=== PATIENT | female | born 1995 | race Caucasian/White ===

== ENCOUNTER 2017-01-02 12:25 | Emergency (ER) | payer MEDICAID ==
[2012-07-05 08:19] VITALS: BMI 22.1
== END 2017-01-02 13:22 | disposition home or self-care (01) ==
LOC: D.ER 12:25
DX: S61.411A Laceration without foreign body of right hand, initial encounter (principal); W25.XXXA Contact with sharp glass, initial encounter; Y93.G1 Activity, food preparation and clean up; Y92.010 Kitchen of single-family (private) house as the place of occurrence of the external cause

== ENCOUNTER 2017-01-09 15:08 | Emergency (ER) | payer MEDICAID | END 2017-01-09 17:46 | disposition home or self-care (01) | LOC: D.ER 15:08 | DX: N39.0 Urinary tract infection, site not specified (principal); F17.200 Nicotine dependence, unspecified, uncomplicated ==

== ENCOUNTER 2017-04-18 16:13 | Emergency (ER) | payer MEDICAID ==
[2012-07-05 08:19] VITALS: BMI 22.1
[2017-04-18 17:49] LABS: BASOPHILS 0.1 % (0-2); EOSINOPHILS 0.7 % (0-7); IMMATURE GRANULOCYTES 0.5 % (0-5); LYMPHOCYTES 18.2 % (15-50); MCH 31.8 pg (26.0-34.0); MCHC 33.3 g/dL (31.0-37.0); MCV 95.4 fL (80.0-100.0); MEAN PLATELET VOLUME 9.4 fL (7.4-10.4); MONOCYTES 7.6 % (2-11); NEUTROPHILS 72.9 % (40-80); PLATELET COUNT 330 10x3/uL (130-400); RBC 3.46 10x6/uL (4.00-5.40); RDW 14.4 % (11.5-14.5); WBC 15.9 10x3/uL (4.8-10.8)
[2017-04-18 17:57] LABS: APPEARANCE CLEAR (CLEAR); BILIRUBIN NEGATIVE (NEGATIVE); COLOR YELLOW (YELLOW); GLUCOSE NEGATIVE (NEGATIVE); KETONE NEGATIVE (NEGATIVE); NITRITE NEGATIVE (NEGATIVE); PROTEIN NEGATIVE (NEGATIVE); UROBILINOGEN NORMAL (NORMAL)
[2017-04-18 18:04] LABS: ALBUMIN 3.2 g/dL (3.4-5.0); ALKALINE PHOSPHATASE 76 U/L (46-116); ALT (SGPT) 40 U/L (10-68); BILIRUBIN - TOTAL 0.17 mg/dL (0.2-1.3); CALC OSMOLALITY 263 mosm/kg (275-300); CALCIUM 9.5 mg/dL (8.5-10.1); CARBON DIOXIDE 26.5 mmol/L (21.0-32.0); CHLORIDE - SERUM 101 mmol/L (98-107); CREATININE - SERUM 0.4 mg/dL (0.6-1.3); GLUCOSE 90 mg/dL (74-106); POTASSIUM - SERUM 3.3 mmol/L (3.5-5.1); PROTEIN - SERUM 7.1 g/dL (6.4-8.2); SODIUM 133 mmol/L (136-145); UREA NITROGEN 7 mg/dL (7-18); eGFR NON AFRICAN AMERICAN > 90 mL/min (90-120)
[2017-04-18 18:06] LABS: LIPASE 90 U/L (73-393)
[2017-04-18 19:25] LABS: HCG - QUANTITATIVE (MATERNAL) 25995 mIU/mL
== END 2017-04-18 22:33 | disposition home or self-care (01) ==
LOC: D.ER 16:13
PROVIDERS: Emergency Medicine
DX: O26.892 Other specified pregnancy related conditions, second trimester (principal); Z3A.18 18 weeks gestation of pregnancy; R10.30 Lower abdominal pain, unspecified; N13.30 Unspecified hydronephrosis

== ENCOUNTER 2017-09-10 20:38 | Inpatient (IN) | payer MEDICAID ==
[~2017-09-10] VITALS: Ht 160 cm; Wt 76.2 kg
--- NOTE | ~2017-09-10 | OP ---
PATIENT NAME: MIGUEL MEJIA MEDICAL RECORD: [id number] :95 LOCATION:[id number] ADMISSION DATE:09/10/17 SURGEON: ANJEL CAIN MD DATE OF OPERATION: 09/11/2017 PREDELIVERY DIAGNOSIS: at term. POSTDELIVERY DIAGNOSIS: Mother delivered at term. PROCEDURE: Induction of labor with vaginal delivery. ATTENDING: Anjel Cain MD ANESTHETIC: Continuous lumbar epidural. FINDINGS: Viable female infant in BERTR[place] presentation. Apgars were 9 and 9. Weight is still pending at the time of this dictation. First-degree laceration with 3-0 chromic repair. Placenta is spontaneous and intact. ESTIMATED BLOOD LOSS: 375 cc. DISPOSITION: Mother and infant are recovered in the room. TRANSINT:[id number] Voice Confirmation ID: [id number] DOCUMENT ID: [id number] ANJEL CIAN MD at 1335 CC: [id number] DICTATION DATE: 09/11/17 1035 FACILITY MAINTENANCE HELPER: 09/11/17 1137 ADM IN [facility] [address] [place] [address]
--- NOTE | ~2017-09-10 | DS ---
PATIENT:MIGUEL MEJIA :89 MEDICAL RECORD: [id number] DISCHARGE SUMMARY ADMISSION DATE: 09/10/17 DISCHARGE DATE: 09/12/17 ADMISSION DATE: 09/10/2017 DISCHARGE DATE: 09/12/2017 ADMISSION DIAGNOSIS: at term. DISCHARGE DIAGNOSIS: Mother delivered at term. PROCEDURE: Induction of labor with vaginal delivery. ATTENDING: Malathi Cain MD HISTORY OF PRESENT ILLNESS: See the H&P in the chart. SUMMARY OF HOSPITALIZATION: The patient was admitted to the hospital and underwent induction of labor without incident. At the time of discharge, she is tolerating a regular diet, voiding without difficulty and has minimal to moderate lochia. The patient has been given standard precautions and will follow up in 6 weeks. We have discussed control and the patient will use condoms until she decides on something more longer acting. TRANSINT:[id number] Voice Confirmation ID: [id number] DOCUMENT ID: [id number] MALATHI CAIN MD at 1158 CC: [id number] DICTATION DATE: 09/12/17 1323 ASSISTANT SALES MANAGER: 09/13/17 0727 DIS IN 09/12/17 [facility] [address] [place] [id number]
[2017-09-10] MEDS ORDERED: PRENATAL COMPLE1 TAB PO (21:08)
[2017-09-10 21:09] VITALS: BP 108/59; Ht 160 cm; Wt 76.2 kg
[2017-09-10 21:10] LABS: HEMATOCRIT 33.2 % (36.0-48.0); HEMOGLOBIN 11.2 g/dL (12-16); MCHC 33.7 g/dL (31.0-37.0); MEAN PLATELET VOLUME 10.5 fL (7.4-10.4); RBC 3.61 10x6/uL (4.00-5.40); RDW 13.3 % (11.5-14.5); WBC 12.1 10x3/uL (4.8-10.8)
[2017-09-10 21:52] LABS: APPEARANCE CLOUDY (CLEAR); BILIRUBIN NEGATIVE (NEGATIVE); COLOR YELLOW (YELLOW); EPITHELIAL CELLS 0-5 /hpf (0-5); GLUCOSE NEGATIVE (NEGATIVE); KETONE NEGATIVE (NEGATIVE); NITRITE POSITIVE (NEGATIVE); PROTEIN NEGATIVE (NEGATIVE); RED CELLS - URINE 0-5 /hpf (0-5); SPECIFIC GRAVITY 1.015 (1.005-1.020); UROBILINOGEN NORMAL (NORMAL); WHITE CELLS - URINE >50 /hpf (0-5)
[2017-09-10 21:53] LABS: BACTERIA MODERATE /hpf (NONE SEEN)
[2017-09-10 22:04] LABS: UDS - AMPHET NEGATIVE QUAL (NEGATIVE); UDS - BARB NEGATIVE QUAL (NEGATIVE); UDS - BENZO NEGATIVE QUAL (NEGATIVE); UDS - COCAINE NEGATIVE QUAL (NEGATIVE); UDS - OPIATE NEGATIVE QUAL (NEGATIVE); UDS - PCP NEGATIVE QUAL (NEGATIVE); UDS - THC NEGATIVE QUAL (NEGATIVE)
[2017-09-11 19:30] VITALS: BP 117/75
[2017-09-12 04:48] LABS: HEMOGLOBIN 10.9 g/dL (12-16); MCH 30.5 pg (26.0-34.0); MCV 92.4 fL (80.0-100.0); MEAN PLATELET VOLUME 10.3 fL (7.4-10.4); RBC 3.57 10x6/uL (4.00-5.40); RDW 13.4 % (11.5-14.5)
[2017-09-12 04:57] LABS: WBC 15.7 10x3/uL (4.8-10.8)
[2017-09-12 07:25] LABS: RAPID PLASMA REAGIN Non Reactive (Non Reactive)
[2017-09-12 07:39] VITALS: BP 112/61
== END 2017-09-12 15:45 | disposition home or self-care (01) | DRG 775 ==
LOC: D.LD 20:38
PROVIDERS: Obstetrics & Gynecology
PROC: 3E033VJ Introduction of Other Hormone into Peripheral Vein, Percutaneous Approach (ICD-10-PCS; 2017-09-10)
PROC: 10E0XZZ Delivery of Products of Conception, External Approach (ICD-10-PCS; principal; 2017-09-11)
PROC: 0HQ9XZZ Repair Perineum Skin, External Approach (ICD-10-PCS; 2017-09-11)
DX: O99.334 Smoking (tobacco) complicating childbirth (principal); Z3A.39 39 weeks gestation of pregnancy; Z37.0 Single live birth; O70.0 First degree perineal laceration during delivery

== ENCOUNTER 2018-08-17 14:57 | Emergency (ER) | payer MEDICAID ==
[2017-09-10 21:09] VITALS: BMI 29.8
[~2018-08-17 14:57] MED LIST: PRENATAL COMPLE1 TAB PO
[2018-08-18] MEDS ORDERED: AMOXICILLIN500 M1 PO (15:19)
== END 2018-08-17 16:46 | disposition left against medical advice (07) ==
LOC: D.ER 14:57
DX: K13.79 Other lesions of oral mucosa (principal)

== ENCOUNTER 2018-08-18 14:15 | Emergency (ER) | payer MEDICAID ==
[2018-08-18 14:24] VITALS: BMI 25.7
[2018-08-18 15:11] LABS: HCG SERUM POSITIVE (NEGATIVE)
[2018-08-18] MEDS ORDERED: AMOXICILLIN500 M1 PO (15:19)
[2018-08-18 15:27] VITALS: BP 109/64
== END 2018-08-18 15:30 | disposition home or self-care (01) ==
LOC: D.ER 14:15
PROVIDERS: Family Medicine
DX: K04.7 Periapical abscess without sinus (principal); Z32.01 Encounter for pregnancy test, result positive

== ENCOUNTER 2018-08-21 14:40 | Emergency (ER) | payer MEDICAID ==
[~2018-08-21] VITALS: Ht 160 cm; Wt 63.6 kg
[~2018-08-21 14:40] MED LIST changes: +AMOXICILLIN500 M1 PO
[2018-08-21 14:43] VITALS: Ht 160 cm; Wt 63.6 kg
[2018-08-21 15:06] LABS: APPEARANCE CLEAR (CLEAR); BILIRUBIN NEGATIVE (NEGATIVE); COLOR YELLOW (YELLOW); GLUCOSE NEGATIVE (NEGATIVE); KETONE NEGATIVE (NEGATIVE); NITRITE NEGATIVE (NEGATIVE); PROTEIN NEGATIVE (NEGATIVE); UROBILINOGEN NORMAL (NORMAL)
[2018-08-21 15:24] LABS: BASOPHILS 0.3 % (0-2); HEMATOCRIT 36.1 % (36.0-48.0); HEMOGLOBIN 12.2 g/dL (12-16); IMMATURE GRANULOCYTES 0.3 % (0-5); MCH 30.6 pg (26.0-34.0); MCHC 33.8 g/dL (31.0-37.0); MCV 90.5 fL (80.0-100.0); MEAN PLATELET VOLUME 9.7 fL (7.4-10.4); MONOCYTES 6.8 % (2-11); NEUTROPHILS 59.6 % (40-80); PLATELET COUNT 282 10x3/uL (130-400); RBC 3.99 10x6/uL (4.00-5.40); RDW 13.6 % (11.5-14.5); WBC 11.2 10x3/uL (4.8-10.8)
[2018-08-21 15:37] LABS: ALBUMIN 3.7 g/dL (3.4-5.0); ALKALINE PHOSPHATASE 103 U/L (46-116); ALT (SGPT) 45 U/L (10-68); BILIRUBIN - TOTAL 0.25 mg/dL (0.2-1.3); CALC OSMOLALITY 272 mosm/kg (275-300); CALCIUM 9.2 mg/dL (8.5-10.1); CARBON DIOXIDE 23.2 mmol/L (21.0-32.0); CHLORIDE - SERUM 104 mmol/L (98-107); CREATININE - SERUM 0.5 mg/dL (0.6-1.3); GLUCOSE 81 mg/dL (74-106); POTASSIUM - SERUM 3.7 mmol/L (3.5-5.1); PROTEIN - SERUM 7.7 g/dL (6.4-8.2); SODIUM 138 mmol/L (136-145); UREA NITROGEN 7 mg/dL (7-18); eGFR NON AFRICAN AMERICAN > 90 mL/min (90-120)
[2018-08-21 16:02] LABS: HCG - QUANTITATIVE (MATERNAL) 32023 mIU/mL
[2018-08-21 17:59] VITALS: BP 124/63
== END 2018-08-21 18:52 | disposition home or self-care (01) ==
LOC: D.ER 14:40
PROVIDERS: Family Medicine
DX: O20.9 Hemorrhage in early pregnancy, unspecified (principal); Z3A.01 Less than 8 weeks gestation of pregnancy

== ENCOUNTER 2019-01-22 21:22 | Outpatient (CLI) | payer MEDICAID ==
[2018-08-21 14:43] VITALS: BMI 24.8
[2019-01-22 22:02] LABS: APPEARANCE HAZY (CLEAR); BILIRUBIN NEGATIVE (NEGATIVE); COLOR YELLOW (YELLOW); GLUCOSE NEGATIVE (NEGATIVE); KETONE NEGATIVE (NEGATIVE); NITRITE NEGATIVE (NEGATIVE); PROTEIN NEGATIVE (NEGATIVE); SPECIFIC GRAVITY 1.025 (1.005-1.020); UROBILINOGEN NORMAL (NORMAL)
[2019-01-22 22:03] LABS: BACTERIA MANY /hpf (NEGATIVE); RED CELLS - URINE 0-5 /hpf (0-5); WHITE CELLS - URINE 0-5 /hpf (NEGATIVE)
[2019-01-22 22:04] LABS: UDS - AMPHET NEGATIVE QUAL (NEGATIVE); UDS - BARB NEGATIVE QUAL (NEGATIVE); UDS - BENZO NEGATIVE QUAL (NEGATIVE); UDS - COCAINE NEGATIVE QUAL (NEGATIVE); UDS - OPIATE NEGATIVE QUAL (NEGATIVE); UDS - PCP NEGATIVE QUAL (NEGATIVE); UDS - THC POSITIVE QUAL (NEGATIVE)
== END 2019-01-22 22:40 | disposition home or self-care (01) ==
LOC: D.LDO 21:22
PROVIDERS: ATTEND Student in an Organized Health Care Education/Training Program
DX: O26.899 Other specified pregnancy related conditions, unspecified trimester (principal); R10.30 Lower abdominal pain, unspecified; Z3A.00 Weeks of gestation of pregnancy not specified

== ENCOUNTER → 2019-03-08 13:37 | Outpatient (CLI) | payer MEDICAID ==
[2018-08-21 14:43] VITALS: BMI 24.8
== END | disposition home or self-care (01) ==
LOC: D.LDO 13:37
PROVIDERS: ATTEND Student in an Organized Health Care Education/Training Program
DX: O26.893 Other specified pregnancy related conditions, third trimester (principal); Z3A.36 36 weeks gestation of pregnancy

== ENCOUNTER 2019-03-31 20:02 | Inpatient (IN) | payer MEDICAID ==
[~2019-03-31] VITALS: Ht 160 cm; Wt 84.4 kg
[2019-03-31 20:37] VITALS: BP 121/59; Ht 160 cm; Wt 84.4 kg
[2019-03-31 20:52] LABS: HEMATOCRIT 32.4 % (36.0-48.0); HEMOGLOBIN 10.8 g/dL (12-16); MCH 30.9 pg (26.0-34.0); MCHC 33.3 g/dL (31.0-37.0); MCV 92.8 fL (80.0-100.0); MEAN PLATELET VOLUME 9.7 fL (7.4-10.4); RBC 3.49 10x6/uL (4.00-5.40); RDW 13.4 % (11.5-14.5); WBC 15.4 10x3/uL (4.8-10.8)
[2019-03-31 20:57] LABS: UDS - AMPHET NEGATIVE QUAL (NEGATIVE); UDS - BARB NEGATIVE QUAL (NEGATIVE); UDS - BENZO NEGATIVE QUAL (NEGATIVE); UDS - COCAINE NEGATIVE QUAL (NEGATIVE); UDS - OPIATE NEGATIVE QUAL (NEGATIVE); UDS - PCP NEGATIVE QUAL (NEGATIVE); UDS - THC NEGATIVE QUAL (NEGATIVE)
[2019-03-31 21:04] LABS: APPEARANCE CLEAR (CLEAR); BILIRUBIN NEGATIVE (NEGATIVE); COLOR STRAW (YELLOW); GLUCOSE NEGATIVE (NEGATIVE); KETONE NEGATIVE (NEGATIVE); NITRITE NEGATIVE (NEGATIVE); PROTEIN TRACE mg/dL (NEGATIVE); SPECIFIC GRAVITY 1.015 (1.005-1.020); UROBILINOGEN NORMAL (NORMAL)
[2019-03-31 21:05] LABS: BACTERIA MODERATE /hpf (NEGATIVE); RED CELLS - URINE 0-5 /hpf (0-5); WHITE CELLS - URINE 0-5 /hpf (NEGATIVE)
--- NOTE | 2019-04-01 19:03 | NUR ---
BEDSIDE REPORT RECEIVED FROM OFF GOING NURSE LEANDRO GUTIERREZ RN. PT RESTING IN BED. DENIES ANY COMPLAINTS OR NEEDS AT THIS TIME.
[2019-04-01 19:50] VITALS: BP 114/63
--- NOTE | 2019-04-01 19:50 | NUR ---
PT RESTING IN BED. ASSESSMENT COMPLETE PER FLOWSHEET. VSS. PT DENIES ANY C/O PAIN AT THIS TIME. BBS CLEAR. AUDIBLE BS X4 QUADRANTS. FUNDUS FIRM AND 1 BELOW UMBILICUS. SMALL- MODERATE AMOUNT OF LOCHIA NOTED ON PERIPAD. PT REPORTS IT HAS BEEN AWHILE SINCE SHE CHANGED HER PAD. PERIPAD CHANGED. NO EDEMA NOTED TO BLE. POC DISCUSSED WITH PT INCLUIDING TRANSFERRING HER TO ROOM 1257, PAIN MANAGEMENT, LOCHIA, AND FUNDAL CHECKS. QUESTIONS ANSWERED. INSTRUCTED PT TO NOTIFY NURSE WITH ANY PROBLEMS, NEEDS, OR CONCERNS. VERBALIZED UNDERSTANDING. BED IN LOW POSITION. SR UP X2. CALL LIGHT WITHIN PTS REACH.
--- NOTE | 2019-04-01 20:05 | NUR ---
PT AMBULATORY TO ROOM 1257. RN TRANSPORTED VIA OPEN CRIB. NO DISTRESS NOTED. PT ORIENTED TO ROOM, CALL LIGHT AND BED. DISCUSSED WITH PT PLACING INFANT IN CRIB IF SHE IS SLEEPING FOR INFANTS SAFETY.INSTRUCTED TO NOTIFY NURSE WITH ANY PROBLEMS, NEEDS, OR CONCERNS. VERBALIZED UNDERSTANDING. BED IN LOW POSITION. SR UP X2. CALL LIGHT WITHIN PTS REACH.
--- NOTE | 2019-04-01 20:45 | NUR ---
SCHEDULED TYLENOL GIVEN. PT RATES HER PAIN 4/10 FOR ABDOMINAL CRAMPING. PT DECLINED NICOTINE PATCH AT THIS TIME. NO REQUEST MADE. INSTRUCTED PT TO NOTIFY NURSE IF PAIN MEDICATION NOT EFFECTIVE OR WITH ANY PROBLEMS, NEEDS, OR CONCERNS. VERBALIZED UNDERSTANDING. BED IN LOW POSITION. SR UP X2. CALL LIGHT WITHIN PTS REACH.
--- NOTE | 2019-04-01 21:22 | NUR ---
TORADOL 10MG GIVEN PO FOR C/O ABDOMINAL CRAMPING. INSTRUCTED PT TO NOTIFY NURSE IF MEDICATION NOT EFFECTIVE OR WITH ANY OTHER PROBLEMS, NEEDS, OR CONCERNS. VERBALIZED UNDERSTANDING. IN OPEN CRIB AT BEDSIDE. BED IN LOW POSITION. SR UP X2. CALL LIGHT WITHIN PTS REACH.
--- NOTE | 2019-04-01 22:50 | NUR ---
PT SITTING UP IN BED HOLDING . PT DENIES ANY COMPLAINTS OR NEEDS AT THIS TIME. INSTRUCTED PT TO NOTIFY NURSE WITH ANY PROBLEMS, NEEDS, OR CONCERNS. VERBALIZED UNDERSTANDING. BED IN LOW POSITION. SR UP X2. CALL LIGHT WITHIN PTS REACH.
--- NOTE | 2019-04-01 23:04 | NUR ---
SPOKE WITH [facility] IN LAB TO LET THEM KNOW THAT PT HAS LAB TO BE DRAWN AT MIDNIGHT. VERBALIZED UNDERSTANDING.
--- NOTE | 2019-04-01 23:42 | NUR ---
PT AT NURSE'S STATION TO REPORT SHE IS GOING OUTSIDE TO SMOKE. SHE STATED THAT HE DAD IS WITH HER. NO DISTRESS NOTED.
[2019-04-02 00:10] VITALS: BP 115/64
--- NOTE | 2019-04-02 00:10 | NUR ---
PT RESTING IN BED. VS OBTAINED. FUNDUS FIRM AND 1 BELOW UMBILICUS. MODERATE AMOUNT OF LOCHIA NOTED ON PERIPAD. REQUEST MADE FOR PT TO CHANGE HER PERIPAD AND THIS RN WILL RECHECK HER PAD FOR AMOUNT OF LOCHIA IN 1 HOUR. PT DENIES ANY COMPLAINTS OR NEEDS AT THIS TIME. INSTRUCTED PT TO NOTIFY NURSE WITH ANY PROBLEMS, NEEDS, OR CONCERNS. VERBALIZED UNDERSTANDING. BED IN LOW POSITION. SR UP X2. CALL LIGHT WITHIN PTS REACH.
[2019-04-02 00:31] LABS: BASOPHILS 0.1 % (0-2); EOSINOPHILS 0.6 % (0-7); HEMATOCRIT 32.8 % (36.0-48.0); IMMATURE GRANULOCYTES 0.5 % (0-5); LYMPHOCYTES 23.3 % (15-50); MCH 31.2 pg (26.0-34.0); MCHC 33.5 g/dL (31.0-37.0); MCV 92.9 fL (80.0-100.0); MEAN PLATELET VOLUME 9.7 fL (7.4-10.4); MONOCYTES 7.9 % (2-11); NEUTROPHILS 67.6 % (40-80); PLATELET COUNT 323 10x3/uL (130-400); RBC 3.53 10x6/uL (4.00-5.40); RDW 13.3 % (11.5-14.5); WBC 21.6 10x3/uL (4.8-10.8)
--- NOTE | 2019-04-02 00:55 | NUR ---
PT RESTING IN BED. PERIPAD CHECKED AND SMALL AMOUNT OF LOCHIA NOTED. PT REQUESTED TO TAKE A SHOWER. SL COVERED. PT DENIES ANY COMPLAINTS OR NEEDS. INSTRUCTED PT OT NOTIFY NURSE WITH ANY PROBLEMS, NEEDS, OR CONCERNS. VERBALIZED UNDERSTANDING/ BED IN LOW POSITION. SR UP X2. CALL LIGHT WITHIN PTS REACH.
--- NOTE | 2019-04-02 02:00 | NUR ---
PT RESTING IN BED WITH EYES CLOSED AND LIGHTS OFF. NO DISTRESS NOTED. BED IN LOW POSITION. SR UP X2. CALL LIGHT WITHIN PTS REACH.
--- NOTE | 2019-04-02 03:26 | NUR ---
PT RESTING IN BED. SCHEDULED TYLENOL GIVEN. PT DENIES ANY COMPLAINTS OR NEEDS. INSTRUCTED PT TO NOTIFY NURSE WITH ANY PROBLEMS, NEEDS, OR CONCERNS. VERBALIZED UNDERSTANDING. BED IN LOW POSITION. SR UP X2. CALL LIGHT WITHIN PTS REACH.
--- NOTE | 2019-04-02 04:10 | NUR ---
PT RESTING IN BED WITH EYES CLOSED AND LIGHTS OFF. NO DISTRESS NOTED. BED IN LOW POSITION. SR UP X2. CALL LIGHT WITHIN PTS REACH.
--- NOTE | 2019-04-02 06:05 | NUR ---
PT RESTING IN BED WITH EYES CLOSED AND LIGHTS OFF. NO DISTRESS NOTED. BED IN LOW POSITION. SR UP X2. CALL LIGHT WITHIN PTS REACH.
[2019-04-02 08:11] LABS: RAPID PLASMA REAGIN Non Reactive (Non Reactive)
[2019-04-02 08:45] VITALS: BP 109/65
--- NOTE | 2019-04-02 08:45 | NUR ---
PATIENT RESTING IN BED. INFANT AT BEDSIDE IN OPEN CRIB. ASSESSMENT COMPLETE-SEE FLOWSHEET. IV SITE WITHOUT REDNESS, PAIN OR EDEMA. IV FLUSHED WTIH 10CC NS WITHOUT DIFFICULTY. FUNDUS FIRM 1 BELOW THE UMBILICUS. LOCHIA RUBRA AND SCANT. STATES NO DIFFICULTY VOIDING.
--- NOTE | 2019-04-02 09:57 | NUR ---
PT. SITTING IN BED WITH INFANT. C/O PERINEAL PAIN NOT RELIEVED WITH TYLENOL. TORADOL GIVEN PO.
--- NOTE | 2019-04-02 10:53 | NUR ---
PT SITTING UP IN BED WITH IN ARMS. STATES NORCO HAS HELPED PAIN. NO NEEDS OR COMPLAINTS AT THIS TIME.
--- NOTE | 2019-04-02 10:58 | NUR ---
PT SITTING UP IN BED WATCHING TV WITH BABY AT BEDSIDE IN OPEN CRIB. STATES TORADOL HAS HELP PAIN A LITTLE. NO OTHER NEEDS OR COMPLAINTS AT THIS TIME.
--- NOTE | 2019-04-02 11:52 | NUR ---
PT SITTING UP IN BED WTIH IN ARMS. NO COMPLAINTS AT THIS TIME.
--- NOTE | 2019-04-02 13:06 | NUR ---
SITTING UP IN BED WITH INFANT IN ARMS. S/O AND CHILD HERE VISITING. NO COMPLAINTS OR NEEDS AT THIS TIME.
--- NOTE | 2019-04-02 14:15 | NUR ---
PT SITTING ON SOFA IN ROOM. FAMILY AT BEDSIDE. NO COMPLAINTS OR NEEDS AT THIS TIME.
--- NOTE | 2019-04-02 15:29 | NUR ---
PT AMBULATING IN ROOM. FAMILY AT BEDSIDE.
--- NOTE | 2019-04-02 15:45 | NUR ---
DR. MCNEIL CALLED TO UNIT. PATIENT STATUS-VS STABLE, BLEEDING SCANT, FUNDUS FIRM.
--- NOTE | 2019-04-02 16:34 | NUR ---
THIS RN TO ROOM FOR PT CHECK AND DISCUSS D/C TO HOME. PT SITTING UP IN BED, INFO SHEET GIVEN ON TDAP. PT STATES SHE WOULD LIKE THIS VACCINE PRIOR TO DISCHARGE. PT REQUESTS PACK OF DISPOSABLE PANTIES, DENIES FURTHER NEEDS. Ondina CL IN REACH. WILL RETURN.
--- NOTE | 2019-04-02 16:41 | NUR ---
PT ADMIN TDAP ORDERED, SEE EMAR FOR DOC. PT PROVIDED WITH REQUESTED PANTIES. RIGHT WRIST PIV D/C'D WITHOUT INCIDENT, CATH INTACT. NO BLEEDING NOTED, BANDAID APPLIED. PT DENIES NEEDS AT THIS TIME.
--- NOTE | 2019-04-02 17:30 | NUR ---
PT GIVEN DISCHARGE INSTRUCTIONS. PT VERBALIZES UNDERSTANDING AND DENIES QUESTIONS, STATES SHE UNDERSTANDS SHE MUST MAKE 6 WEEK F/U MANOHAR WITH DR MCNEIL. PT SIGNS CHART COPY OF INSTRUCTIONS. PT INSTRUCTED TO CALL OUT [facility] WHEN SHE HAS INFANT BUCKLED IN AND READY TO GO.
--- NOTE | 2019-04-02 17:45 | NUR ---
PT TAKEN OFF UNIT VIA W/C WITH INFANT BUCKLED IN CARSEAT. SIG OTHER TO DRIVE HOME.
== END 2019-04-02 17:45 | disposition home or self-care (01) | DRG 807 ==
LOC: D.LD 20:02
PROVIDERS: ADMIT Obstetrics & Gynecology; ATTEND Obstetrics & Gynecology
PROC: 3E033VJ Introduction of Other Hormone into Peripheral Vein, Percutaneous Approach (ICD-10-PCS; 2019-03-31)
PROC: 10E0XZZ Delivery of Products of Conception, External Approach (ICD-10-PCS; principal; 2019-04-01)
DX: O99.334 Smoking (tobacco) complicating childbirth (principal); Z37.0 Single live birth; F17.200 Nicotine dependence, unspecified, uncomplicated; Z3A.39 39 weeks gestation of pregnancy

== ENCOUNTER 2019-06-14 08:00 | Outpatient (CLI) | payer MEDICAID ==
[2019-06-14 11:05] LABS: BASOPHILS 0.3 % (0-2); EOSINOPHILS 3.1 % (0-7); HEMATOCRIT 41.1 % (36.0-48.0); HEMOGLOBIN 13.3 g/dL (12-16); IMMATURE GRANULOCYTES 0.1 % (0-5); LYMPHOCYTES 44.7 % (15-50); MCH 29.8 pg (26.0-34.0); MCHC 32.4 g/dL (31.0-37.0); MCV 91.9 fL (80.0-100.0); MEAN PLATELET VOLUME 9.8 fL (7.4-10.4); MONOCYTES 5.2 % (2-11); NEUTROPHILS 46.6 % (40-80); PLATELET COUNT 302 10x3/uL (130-400); RBC 4.47 10x6/uL (4.00-5.40); RDW 14.2 % (11.5-14.5); WBC 7.8 10x3/uL (4.8-10.8)
[2019-06-24 09:44] VITALS: BMI 30.3
== END 2019-06-14 08:01 | disposition home or self-care (01) ==
LOC: D.OPS 08:00 → D.PAN 06-17 07:15 → EDSTATUS 06-17 07:15 → D.OPS 06-17 07:15
PROVIDERS: ATTEND Obstetrics & Gynecology
DX: Z30.2 Encounter for sterilization (principal)

== ENCOUNTER 2019-06-24 06:10 | Day surgery (SDC) | payer MEDICAID ==
[2019-06-21 11:20] LABS: BASOPHILS 0.3 % (0-2); EOSINOPHILS 2.5 % (0-7); HEMATOCRIT 40.1 % (36.0-48.0); HEMOGLOBIN 13.2 g/dL (12-16); IMMATURE GRANULOCYTES 0.2 % (0-5); MCH 29.9 pg (26.0-34.0); MCHC 32.9 g/dL (31.0-37.0); MCV 90.9 fL (80.0-100.0); MEAN PLATELET VOLUME 9.7 fL (7.4-10.4); MONOCYTES 6.2 % (2-11); NEUTROPHILS 54.8 % (40-80); PLATELET COUNT 302 10x3/uL (130-400); RBC 4.41 10x6/uL (4.00-5.40); RDW 14.2 % (11.5-14.5); WBC 9.2 10x3/uL (4.8-10.8)
[~2019-06-24] VITALS: Ht 160 cm; Wt 77.6 kg
[2019-06-24 09:42] LABS: HCG URINE NEGATIVE (NEGATIVE)
[2019-06-24 09:44] VITALS: BP 90/43; Ht 160 cm; Wt 77.6 kg
--- NOTE | 2019-06-24 17:14 | NUR ---
1455 MEDICATED FOR PAIN. RECIEVED A FULL LIQ TRAY 1555 IV REMOVED AND INSTRUCTIONS GIVEN 1600 VOIDED IN BATHROOM. NO VAGINAL BLEEDING. 1640 D/C HOME
--- NOTE | 2019-07-02 11:42 | OP ---
PATIENT NAME: MIGUEL MEJIA MEDICAL RECORD: [id number] :95 LOCATION:[facility] ADMISSION DATE: SURGEON: MALATHI MCNEIL MD DATE OF OPERATION: 06/24/2019 DATE OF SERVICE: 06/24/2019 PREOPERATIVE DIAGNOSIS: Undesired fertility. POSTOPERATIVE DIAGNOSES: 1. Undesired fertility. 2. Left dermoid cyst. PROCEDURE PERFORMED: 1. Diagnostic laparoscopy. 2. Bilateral tubal occlusion using Falope rings. 3. Left salpingo-oophorectomy. SURGEON: Malathi Mcneil MD ENGINEERING COORDINATOR: Jose Carlos Leija. ANESTHESIOLOGIST: Dr. Gaspar. ANESTHETIC: General. FINDINGS: Uterus and tubes were unremarkable. Right ovary is unremarkable. Left ovary contains a 3-1/2 cyst which is found to be a dermoid. What was visualized of the abdominal anatomy is unremarkable. SPECIMENS REMOVED: Left ovary and tube. SPECIMEN DISPOSITION: Pathology. ESTIMATED BLOOD LOSS: Minimal. FLUIDS: One liter of lactated Ringer's. URINE OUTPUT: Quantity sufficient void prior to this procedure. COMPLICATIONS: None. DRAINS: None. INDICATIONS: The patient is a 24-year-old multiparous female with undesired fertility. The patient has been counseled and understands there are other means of contraception, which are reversible. The patient understands if this tubal ligation was to fail, there is an increase chance of ectopic gestation, which could possibly be a life-threatening event if not treated properly. DESCRIPTION OF PROCEDURE: After informed consent was assured, the patient was taken to the operating room where anesthetic was obtained. The patient was now prepped and draped in the usual sterile fashion and the infraumbilical incision was made. Trocars inserted. Pneumoperitoneum was developed. With the patient in Trendelenburg position, an accessory port was now placed in the midline. OPERATIVE REPORT [id number] MIGUEL MEJIA Through this, 8-mm port a blunt probe was inserted and the bowel swept free of the pelvis with the above findings. The Falope ring applicator was now inserted and Falope rings applied to both the right and left isthmic portions of the tubes with good knuckle formation and blanching of the tubes. Attention was now directed to the cyst. Initially, a cystotomy was going to be performed and the cyst wall removed. As the cyst wall was opened, it was apparent this was a dermoid cyst. The pelvis has any sebaceous materials irrigated free. The ovary and accessory trocars were now placed on the right lower quadrant and the ovary was elevated. Using a Thunderbeat coagulation cutter from the midline, the tube was compressed, coagulated, and and the dissection was carried out over the mesosalpinx under the left ovary and across the left infundibulopelvic ligament. Once the ovary and tube has been freed, it was placed in the cul-de-sac. The 8-mm port was now replaced with a 10-mm port. An Endobag was now inserted. The ovary and the cyst was placed into the Endobag and pulled to the trocar, which was now removed. The Endobag was pulled to the incision and using a scalpel, the fascia was extended to allow removal of the mass. The fascia was now closed with a Vicryl stitch. Subcutaneous tissues inspected. Bleeding vessels cauterized and the skin reapproximated with a subcuticular stitch. With the pneumoperitoneum now reestablished, the pelvis was copiously irrigated with sterile water. After thorough irrigation has been completed, the operative site was inspected and found to be hemostatic and the pneumoperitoneum released. Accessory trocar was now removed along with the primary trocar. All sites were closed with a subcuticular stitch. Sponge, lap, and needle counts correct times 2. The patient went to the recovery area in stable condition. TRANSINT:[id number] Voice Confirmation ID: [id number] DOCUMENT ID: [id number] MALATHI MCNEIL MD at 1142 CC: [id number] DICTATION DATE: 06/28/19 0746 DISTRIBUTION ESTIMATOR: 06/28/19 0901 [facility] 06/24/19 [place] [id number]
== END 2019-06-24 16:40 | disposition home or self-care (01) ==
LOC: D.OPS 06:10 → D.PAN 09:45 → D.OPS 10:30 → D.PAN 12:50 → D.OPS 16:40
PROVIDERS: ATTEND Obstetrics & Gynecology
DX: D27.1 Benign neoplasm of left ovary (principal); Z30.2 Encounter for sterilization; Z31.84 Encounter for fertility preservation procedure

== ENCOUNTER 2020-09-12 22:28 | Emergency (ER) | payer MEDICAID ==
[~2020-09-12] VITALS: Ht 160 cm; Wt 77.3 kg
[2020-09-12 22:34] VITALS: Ht 160 cm; Wt 77.3 kg
[2020-09-12 23:08] LABS: HCG URINE NEGATIVE (NEGATIVE)
[2020-09-13 00:36] VITALS: BP 120/60
== END 2020-09-13 00:26 | disposition home or self-care (01) ==
LOC: D.ER 22:28
PROVIDERS: Student in an Organized Health Care Education/Training Program
DX: S83.92XA Sprain of unspecified site of left knee, initial encounter (principal); M25.562 Pain in left knee; X58.XXXA Exposure to other specified factors, initial encounter